=== PATIENT | male | born 1965 | race Caucasian/White ===

== ENCOUNTER → 2019-12-08 14:02 | Outpatient (CLI) | payer OTHER, SELFPAY ==
[2019-12-08 15:56] LABS: Urine N gonorrhoeae NOT DETECTED
[2019-12-08 15:58] LABS: Urine Chlamydia NOT DETECTED
[2019-12-08 16:33] LABS: HIV 1 & 2 Ab/Ag 4th Gen Combo NEGATIVE (NEGATIVE); Hep C Virus Ab w/Reflex Quant NEGATIVE s/c (NEGATIVE); Hepatitis B Surface Antigen NEGATIVE s/c (NEGATIVE)
[2019-12-10 18:17] LABS: RPR Screen Nonreactive (Nonreactive)
[2019-12-13 14:02] LABS: HSV 1 IgM Screen Negative (Negative); HSV 2 IgM Screen Positive (Negative)
== END ==
PROVIDERS: PCP Family Medicine; Referring Provider Physician Assistant; Visit Provider Physician Assistant
DX: Z11.3 Encounter for screening for infections with a predominantly sexual mode of transmission (principal)
CPT/HCPCS: 36415; 86592; 86695; 86696; 86803; 87340; 87389; 87491; 87591

== ENCOUNTER → 2020-05-06 15:45 | Outpatient (CLI) | payer OTHER, SELFPAY ==
--- NOTE | 2020-05-06 15:47 | DI.RAD.S_ITS ---
PROCEDURE: XR FOOT RT MIN 3V INDICATIONS: R inferior/medial heel pain/swelling, r/o fx TECHNIQUE: 3 views of the foot were acquired. COMPARISON: None. FINDINGS: Bones: No fractures or dislocations. No suspicious bony lesions. Soft tissues: No tibiotalar joint effusion. Achilles tendon appears normal. IMPRESSION: No trauma found. Dictated by: Cy Manzo M.D. on 05/06/2020 at 16:40 Approved by: Cy Manzo M.D. on 05/06/2020 at 16:41
== END ==
PROVIDERS: PCP Family Medicine; Referring Provider Physician Assistant; Visit Provider Physician Assistant
DX: M79.671 Pain in right foot (principal)
CPT/HCPCS: 73630